=== PATIENT | female | born 1975 | race African-American/Black ===

== ENCOUNTER 2022-05-28 15:09 | Inpatient (IN) | payer MEDICAID ==
[~2022-05-28] VITALS: Ht 165.1 cm; Wt 80.7 kg
[2022-05-28] MEDS ORDERED: SODIUM CHLORIDE 0.9% 1,000 ML IV ONE (16:00)
[2022-05-28 16:17] LABS: BG BASE EXCESS -24.4 mmol/L (-2.0-2.0); BG CARBOXYHEMOGLOBIN 0.3 % (0.5-1.5); BG DEOXYHEMOGLOBIN 3.4 % (0.0-5.0); BG HCO3 ACT 4.9 mmol/L (22.0-26.0); BG METHEMOGLOBIN 0.4 % (0.0-1.5); BG OXYGEN SATURATION 96.6 % (92.0-98.5); BG OXYHEMOGLOBIN 95.9 % (94.0-97.0); BG PCO2 19.5 mmHg (35.0-45.0); BG PO2 109.7 mmHg (75.0-100.0); BG SAMPLE SITE RIGHT RADIAL; BG TOTAL HEMOGLOBIN 11.6 g/dL (12.0-18.0); BG VENT MODE ROOM AIR
[2022-05-28 16:45] LABS: HEMATOCRIT. 37.6 % (36.0-48.0); HEMOGLOBIN. 10.4 g/dL (12.0-16.0); MEAN CORPUSCULAR HEMOGLOBIN 31.5 pg (28.0-32.0); MEAN CORPUSCULAR VOLUME 113.7 fL (81.0-99.0); MEAN PLATELET VOLUME 8.5 fl (7.4-10.4); PLATELET 608 x1000/uL (130-400); RED CELL DISTRIBUTION WIDTH 16.7 % (11.6-14.6)
[2022-05-28 16:51] LABS: CHLORIDE 91 mEq/L (98-107)
[2022-05-28 17:03] LABS: HCG SCREEN NEGATIVE
[2022-05-28] MEDS ORDERED: INSULIN REGULAR 100U/100ML PMX 100 ML IV SCH (17:30)
[2022-05-28] MEDS ORDERED: INSULIN REGULAR (DRIP) 100 UNITS in SODIUM CHLORIDE 0.9% 99 ML IV SCH (17:30)
[2022-05-28] MEDS ORDERED: KCL 10MEQ/50ML PREMIX 50 ML IV ONE ×2 (17:30)
[2022-05-28 17:36] LABS: PHOSPHORUS 8.4 mg/dL (2.5-4.9)
[2022-05-28] MEDS ORDERED: CEFTRIAXONE 1 G PREMIX 50 ML IV ONE (18:00)
[2022-05-28] MEDS ORDERED: VANCOMYCIN 1G PREMIX 200 ML IV SCH (18:00)
[2022-05-28 18:22] LABS: PLATELET ESTIMATE INCREASED
[2022-05-28 18:25] LABS: BETA HYDROXYBUTYRATE 14.9 mMol/L (0.0-0.3)
[2022-05-28] MEDS ORDERED: CEFTRIAXONE 1 G PREMIX 50 ML IV NR (18:30)
[2022-05-28 20:04] LABS: CLARITY URINE CLOUDY (CLEAR); COLOR URINE YELLOW (YELLOW); KETONES URINE 4+ (NEGATIVE); LEUKOCYTE ESTERASE URINE 2+ (NEGATIVE); NITRITE URINE NEGATIVE (NEGATIVE); OCCULT BLOOD URINE 3+ (NEGATIVE); PH URINE 5.5 (4.5-8.0); PROTEIN URINE 1+ (NEGATIVE); SPECIFIC GRAVITY URINE 1.021 (1.005-1.030)
[2022-05-28] MEDS ORDERED: MIDAZOLAM HCL 50 MG in DEXTROSE 5% WATER 40 ML IV ONE (21:00)
[2022-05-28] MEDS ORDERED: MIDAZOLAM HCL 100 MG in SODIUM CHLORIDE 0.9% 80 ML IV NR (21:15)
[2022-05-28 21:41] LABS: CHLORIDE 96 mEq/L (98-107)
[2022-05-29] VITALS (86 sets, daily range): BP systolic 43–120; BP diastolic 19–78
[2022-05-29 00:15] LABS: BG BASE EXCESS -20.5 mmol/L (-2.0-2.0); BG CARBOXYHEMOGLOBIN 0.3 % (0.5-1.5); BG DEOXYHEMOGLOBIN 2.4 % (0.0-5.0); BG FRACTION INSPIRED OXYGEN 100; BG METHEMOGLOBIN 0.4 % (0.0-1.5); BG OXYGEN SATURATION 97.6 % (92.0-98.5); BG OXYHEMOGLOBIN 96.9 % (94.0-97.0); BG PCO2 27.4 mmHg (35.0-45.0); BG PH 7.082 (7.350-7.450); BG PO2 110.5 mmHg (75.0-100.0); BG SAMPLE SITE LEFT RADIAL; BG TOTAL HEMOGLOBIN 10.9 g/dL (12.0-18.0); BG VENT MODE VENT - AC
[2022-05-29] MEDS ORDERED: SODIUM CHLORIDE 0.9% 1,000 ML IV SCH (00:45)
[2022-05-29] MEDS ORDERED: LORAZEPAM 2MG/ML CPJ IV PRN (01:00)
[2022-05-29] MEDS ORDERED: PIPERACILLIN/TAZOBACTAM 3.375 G in DEXTROSE 5% WATER 50 ML IV SCH (01:00)
[2022-05-29] MEDS ORDERED: CLONIDINE 0.1MG TABLET PO PRN (01:00)
[2022-05-29] MEDS ORDERED: MORPHINE SULFATE 2 MG/ML CPJ (NOT FOR IM USE) IV PRN (01:00)
[2022-05-29] MEDS ORDERED: ACETAMINOPHEN 325MG TABLET PO PRN (01:00)
[2022-05-29] MEDS ORDERED: DOCUSATE SODIUM 100MG CAPSULE PO PRN (01:00)
[2022-05-29] MEDS ORDERED: MAGNESIUM/ALUMINUM HYDROXIDE/SIMETHICONE 30ML UDC PO PRN (01:00)
[2022-05-29] MEDS ORDERED: NOREPINEPHRINE 8MG/250ML PMX 250 ML IV PRN (01:00)
[2022-05-29] MEDS ORDERED: DIPHENHYDRAMINE 50MG/ML VIAL IV PRN (01:00)
[2022-05-29] MEDS ORDERED: LACTATED RINGERS 1,000 ML IV ONE (01:00)
[2022-05-29] MEDS ORDERED: GUAIFENESIN 200MG/10ML SUGAR FREE UDC PO PRN (01:00)
[2022-05-29] MEDS ORDERED: ACETAMINOPHEN 650MG SUPP PR PRN ×2 (01:00)
[2022-05-29] MEDS ORDERED: NOREPINEPHRINE 8 MG in DEXTROSE 5% WATER 250 ML IV PRN (01:15)
[2022-05-29] MEDS: PHENYLEPHRINE 100 MG in DEXT 5% WATER 240 ML IV PRN ×2 (01:25→19:33)
[2022-05-29] MEDS: INSULIN REGULAR 100U/100ML PMX 100 ML IV PRN ×4 (01:26→08:57)
[2022-05-29] MEDS ORDERED: LACTATED RINGERS 2,000 ML IV ONE (01:30)
[2022-05-29] MEDS ORDERED: POTASSIUM CHLORIDE INJ 40 MEQ in DEXT 5% WATER 250 ML IV ONE (03:15)
[2022-05-29] MEDS: KCL 20MEQ/100ML X 2 FOR TOTAL KCL 40MEQ/200ML IV SCH ×2 (03:35→05:33)
[2022-05-29] MEDS ORDERED: FENTANYL 2500MCG/250ML PMX 250 ML IV ONE (05:30)
[2022-05-29] MEDS ORDERED: FENTANYL CITRATE 2,500 MCG in SODIUM CHLORIDE 0.9% 200 ML IV PRN (05:30)
[2022-05-29] MEDS: PIPERACILLIN/TAZOBACTAM 3.375G in DEXT 5% WATER 50ML IV SCH ×3 (05:34→21:10)
[2022-05-29] MEDS ORDERED: SODIUM CHLORIDE 0.45% 1,000 ML IV SCH (08:00)
[2022-05-29 08:03] LABS: HEMATOCRIT. 31.8 % (36.0-48.0); HEMOGLOBIN. 9.9 g/dL (12.0-16.0); MEAN CORPUSCULAR HEMOGLOBIN 31.7 pg (28.0-32.0); MEAN CORPUSCULAR VOLUME 101.9 fL (81.0-99.0); MEAN PLATELET VOLUME 8.4 fl (7.4-10.4); PLATELET 397 x1000/uL (130-400); RED BLOOD CELL COUNT 3.12 mill/uL (4.2-5.4); RED CELL DISTRIBUTION WIDTH 15.2 % (11.6-14.6)
[2022-05-29 08:49] LABS: BG BASE EXCESS -8.3 mmol/L (-2.0-2.0); BG CARBOXYHEMOGLOBIN 0.3 % (0.5-1.5); BG DEOXYHEMOGLOBIN 0.2 % (0.0-5.0); BG FRACTION INSPIRED OXYGEN 100; BG HCO3 ACT 14.6 mmol/L (22.0-26.0); BG METHEMOGLOBIN 0.1 % (0.0-1.5); BG OXYGEN SATURATION 99.8 % (92.0-98.5); BG OXYHEMOGLOBIN 99.4 % (94.0-97.0); BG PH 7.421 (7.350-7.450); BG PO2 444.4 mmHg (75.0-100.0); BG SAMPLE SITE RIGHT RADIAL; BG TOTAL HEMOGLOBIN 10.6 g/dL (12.0-18.0); BG VENT MODE VENT - AC
[2022-05-29] MEDS: MIDAZOLAM HCL 100 MG in SODIUM CHLORIDE 0.9% 80 ML IV PRN ×2 (08:57→19:33)
[2022-05-29] MEDS ORDERED: ENOXAPARIN 40MG/0.4ML SYR SUBCUT SCH (09:01)
[2022-05-29 09:18] LABS: CREATINE KINASE 177 IU/L (26-192); HDL CHOLESTEROL 11 mg/dL (40-59); LDL CHOLESTEROL 153 mg/dL (5-100); PHOSPHORUS 1.7 mg/dL (2.5-4.9)
[2022-05-29 09:35] LABS: CREATINE KINASE 133 IU/L (26-192)
[2022-05-29] MEDS ORDERED: DEXT 5%/0.45% NACL 1000ML 1,000 ML IV SCH (11:45)
[2022-05-29] MEDS ORDERED: KCL 20MEQ/100ML PREMIX 100 ML IV PRN (11:45)
[2022-05-29] MEDS: BLOOD SUGAR DIAGNOSTIC STRIP TEST SCH ×6 (12:35→21:06)
[2022-05-29 13:07] LABS: PROTHROMBIN TIME 11.1 sec (9.6-11.0)
[2022-05-29 14:30] LABS: PHOSPHORUS 0.5 mg/dL (2.5-4.9)
[2022-05-29 14:39] LABS: NUCLEATED RED BLOOD CELLS 1 /100 WBC
[2022-05-29 14:40] LABS: PLATELET ESTIMATE NORMAL
[2022-05-29] MEDS: ACETAMINOPHEN 325MG TABLET PO PRN ×2 (15:43→21:16)
[2022-05-29] MEDS ORDERED: POTASSIUM PHOS,M-BASIC-D-BASIC 20 MMOL in DEXT 5% WATER 243.3333 ML IV NR (16:00)
[2022-05-29] MEDS ORDERED: INSULIN GLARGINE 100 UNITS/ML SUBCUT NR (16:45)
[2022-05-29] MEDS ORDERED: DEXTROSE 50% WATER 50ML SYRINGE IV PRN (16:45)
[2022-05-29] MEDS: SODIUM CHLORIDE 0.45% 1,000 ML IV SCH (17:03)
[2022-05-29] MEDS ORDERED: VANCOMYCIN 750MG PREMIX 150 ML IV SCH (18:00)
[2022-05-29] MEDS: INSULIN LISPRO 100 UNITS/ML SUBCUT SCH ×2 (18:13→21:13)
[2022-05-29 18:27] LABS: PHOSPHORUS 0.4 mg/dL (2.5-4.9)
[2022-05-29] MEDS: INSULIN GLARGINE 100 UNITS/ML SUBCUT SCH (21:13)
[2022-05-29 21:15] LABS: PHOSPHORUS 2.5 mg/dL (2.5-4.9)
[2022-05-30] VITALS (98 sets, daily range): BP systolic 90–146; BP diastolic 57–94
[2022-05-30] MEDS: SODIUM CHLORIDE 0.45% 1,000 ML IV SCH (05:00)
[2022-05-30] MEDS: PIPERACILLIN/TAZOBACTAM 3.375G in DEXT 5% WATER 50ML IV SCH ×3 (05:01→22:06)
[2022-05-30 05:50] LABS: HEMATOCRIT. 25.9 % (36.0-48.0); HEMOGLOBIN. 8.7 g/dL (12.0-16.0); MEAN CORPUSCULAR HEMOGLOBIN 31.9 pg (28.0-32.0); MEAN CORPUSCULAR VOLUME 95.1 fL (81.0-99.0); MEAN PLATELET VOLUME 8.4 fl (7.4-10.4); PLATELET 358 x1000/uL (130-400); RED BLOOD CELL COUNT 2.73 mill/uL (4.2-5.4)
[2022-05-30] MEDS ORDERED: POTASSIUM CHLORIDE INJ 40 MEQ in DEXT 5% WATER 250 ML IV ONE (07:00)
[2022-05-30] MEDS: BLOOD SUGAR DIAGNOSTIC STRIP TEST SCH ×4 (07:21→21:46)
[2022-05-30] MEDS: KCL 20MEQ/100ML X 2 FOR TOTAL KCL 40MEQ/200ML IV SCH ×2 (07:22→10:10)
[2022-05-30] MEDS ORDERED: KCL 20MEQ/100ML PREMIX 100 ML IV SCH (07:30)
[2022-05-30 08:22] LABS: BG BASE EXCESS -4.7 mmol/L (-2.0-2.0); BG CARBOXYHEMOGLOBIN 0.6 % (0.5-1.5); BG DEOXYHEMOGLOBIN 0.8 % (0.0-5.0); BG FRACTION INSPIRED OXYGEN 40; BG HCO3 ACT 19.2 mmol/L (22.0-26.0); BG METHEMOGLOBIN 0.4 % (0.0-1.5); BG OXYGEN SATURATION 99.2 % (92.0-98.5); BG OXYHEMOGLOBIN 98.2 % (94.0-97.0); BG PO2 166.8 mmHg (75.0-100.0); BG SAMPLE SITE LEFT RADIAL; BG TOTAL HEMOGLOBIN 9.1 g/dL (12.0-18.0); BG TOTAL RESPIRATORY RATE 24 b/min; BG VENT MODE VENT - AC
[2022-05-30] MEDS: PANTOPRAZOLE SODIUM 40 MG/VIAL IV SCH (09:05)
[2022-05-30] MEDS: ENOXAPARIN 30MG/0.3ML SYR SUBCUT SCH (09:06)
[2022-05-30] MEDS: INSULIN GLARGINE 100 UNITS/ML SUBCUT SCH ×2 (09:07→21:55)
[2022-05-30] MEDS: INSULIN LISPRO 100 UNITS/ML SUBCUT SCH ×4 (09:07→21:55)
[2022-05-30] MEDS: PHENYLEPHRINE 100 MG in DEXT 5% WATER 240 ML IV PRN (09:09)
[2022-05-30 16:31] LABS: *AMPHETAMINES SCREEN URINE NEGATIVE (NEGATIVE); *BARBITURATES SCREEN URINE NEGATIVE (NEGATIVE); *COCAINE SCREEN URINE NEGATIVE (NEGATIVE); METHADONE URINE SCREEN NEGATIVE (NEGATIVE); OPIATES URINE SCREEN NEGATIVE (NEGATIVE); PHENCYCLIDINE URINE SCREEN NEGATIVE (NEGATIVE)
[2022-05-30 16:37] LABS: PLATELET ESTIMATE NORMAL
[2022-05-30 16:49] LABS: *BENZODIAZEPINES SCREEN URINE PRESUMTIVE POSITIVE (NEGATIVE); CANNABINOID URINE SCREEN PRESUMTIVE POSITIVE (NEGATIVE)
[2022-05-31] VITALS (89 sets, daily range): BP systolic 103–163; BP diastolic 65–99
[2022-05-31] MEDS ORDERED: INSULIN LISPRO 100 UNITS/ML SUBCUT SCH
[2022-05-31] MEDS ORDERED: VANCOMYCIN 1G PREMIX 200 ML IV NR
[2022-05-31] MEDS: BLOOD SUGAR DIAGNOSTIC STRIP TEST SCH ×6 (00:29→20:17)
[2022-05-31] MEDS: INSULIN LISPRO (MEDIUM DOSE) 100 UNITS/ML SUBCUT SCH ×6 (00:33→20:22)
[2022-05-31] MEDS: SODIUM CHLORIDE 0.45% 1,000 ML IV SCH ×3 (02:42→21:55)
[2022-05-31] MEDS: PIPERACILLIN/TAZOBACTAM 3.375G in DEXT 5% WATER 50ML IV SCH ×3 (05:52→21:30)
[2022-05-31 07:09] LABS: HEMATOCRIT. 22.3 % (36.0-48.0); HEMOGLOBIN. 7.6 g/dL (12.0-16.0); MEAN CORPUSCULAR HEMOGLOBIN 32.2 pg (28.0-32.0); MEAN PLATELET VOLUME 8.3 fl (7.4-10.4); PLATELET 296 x1000/uL (130-400); RED BLOOD CELL COUNT 2.37 mill/uL (4.2-5.4)
[2022-05-31 07:28] LABS: CHLORIDE 113 mEq/L (98-107)
[2022-05-31 07:49] LABS: PHOSPHORUS 1.6 mg/dL (2.5-4.9)
[2022-05-31] MEDS ORDERED: POTASSIUM CHLORIDE 20MEQ/PACKET PO NR (08:00)
[2022-05-31 08:31] LABS: BG BASE EXCESS -3.5 mmol/L (-2.0-2.0); BG CARBOXYHEMOGLOBIN 0.3 % (0.5-1.5); BG DEOXYHEMOGLOBIN 1.2 % (0.0-5.0); BG FRACTION INSPIRED OXYGEN 40; BG HCO3 ACT 20.2 mmol/L (22.0-26.0); BG METHEMOGLOBIN 0.3 % (0.0-1.5); BG OXYGEN SATURATION 98.8 % (92.0-98.5); BG OXYHEMOGLOBIN 98.2 % (94.0-97.0); BG PH 7.432 (7.350-7.450); BG PO2 127.5 mmHg (75.0-100.0); BG SAMPLE SITE RIGHT RADIAL; BG TOTAL HEMOGLOBIN 7.9 g/dL (12.0-18.0); BG TOTAL RESPIRATORY RATE 20 b/min; BG VENT MODE VENT - AC
[2022-05-31] MEDS: PANTOPRAZOLE SODIUM 40 MG/VIAL IV SCH (08:33)
[2022-05-31] MEDS: ENOXAPARIN 30MG/0.3ML SYR SUBCUT SCH (08:35)
[2022-05-31] MEDS: PHENYLEPHRINE 100 MG in DEXT 5% WATER 240 ML IV PRN ×2 (09:00→17:46)
[2022-05-31] MEDS: IPRATROPIUM/ALBUTEROL 0.5-3(2.5)MG/3ML NEB NEB PRN ×2 (09:49→16:19)
[2022-05-31 09:59] LABS: PLATELET ESTIMATE NORMAL
[2022-05-31] MEDS: INSULIN GLARGINE 100 UNITS/ML SUBCUT SCH ×2 (10:57→21:37)
[2022-05-31 14:04] LABS: VITAMIN B12 SERUM >2000 pg/mL pg/mL (211-911)
[2022-05-31 15:37] LABS: BG BASE EXCESS -2.2 mmol/L (-2.0-2.0); BG CARBOXYHEMOGLOBIN 0.3 % (0.5-1.5); BG DEOXYHEMOGLOBIN 1.2 % (0.0-5.0); BG FRACTION INSPIRED OXYGEN 40; BG HCO3 ACT 21.8 mmol/L (22.0-26.0); BG METHEMOGLOBIN 0.2 % (0.0-1.5); BG OXYGEN SATURATION 98.8 % (92.0-98.5); BG OXYHEMOGLOBIN 98.3 % (94.0-97.0); BG PCO2 34.1 mmHg (35.0-45.0); BG PH 7.424 (7.350-7.450); BG PO2 143.8 mmHg (75.0-100.0); BG SAMPLE SITE LEFT RADIAL; BG TOTAL HEMOGLOBIN 8.5 g/dL (12.0-18.0); BG VENT MODE VENT - CPAP
[2022-05-31 18:20] LABS: INR 1.1; PROTHROMBIN TIME 11.4 sec (9.6-11.0)
[2022-05-31 19:42] LABS: TOTAL IRON BINDING CAPACITY 132 ug/dL (250-450)
[2022-05-31] MEDS: VANCOMYCIN 1G PREMIX 200 ML IV SCH (22:11)
[2022-06-01] VITALS (82 sets, daily range): BP systolic 84–159; BP diastolic 64–104
[2022-06-01] MEDS: BLOOD SUGAR DIAGNOSTIC STRIP TEST SCH ×6 (00:11→20:30)
[2022-06-01] MEDS: INSULIN LISPRO (MEDIUM DOSE) 100 UNITS/ML SUBCUT SCH ×6 (00:32→20:00)
[2022-06-01 07:26] LABS: HEMOGLOBIN. 7.7 g/dL (12.0-16.0); MEAN CORPUSCULAR VOLUME 95.4 fL (81.0-99.0); MEAN PLATELET VOLUME 7.9 fl (7.4-10.4); PLATELET 278 x1000/uL (130-400); RED BLOOD CELL COUNT 2.41 mill/uL (4.2-5.4); RED CELL DISTRIBUTION WIDTH 15.1 % (11.6-14.6)
[2022-06-01] MEDS: PIPERACILLIN/TAZOBACTAM 3.375G in DEXT 5% WATER 50ML IV SCH ×3 (07:29→21:31)
[2022-06-01 07:31] LABS: CHLORIDE 112 mEq/L (98-107)
[2022-06-01 07:52] LABS: PHOSPHORUS 1.6 mg/dL (2.5-4.9)
[2022-06-01] MEDS: IPRATROPIUM/ALBUTEROL 0.5-3(2.5)MG/3ML NEB NEB PRN (08:02)
[2022-06-01 09:09] LABS: BG BASE EXCESS -0.7 mmol/L (-2.0-2.0); BG CARBOXYHEMOGLOBIN 0.3 % (0.5-1.5); BG DEOXYHEMOGLOBIN 5.1 % (0.0-5.0); BG FRACTION INSPIRED OXYGEN 26; BG HCO3 ACT 23.1 mmol/L (22.0-26.0); BG METHEMOGLOBIN 0.8 % (0.0-1.5); BG OXYGEN SATURATION 94.8 % (92.0-98.5); BG OXYHEMOGLOBIN 93.8 % (94.0-97.0); BG PCO2 34.7 mmHg (35.0-45.0); BG PH 7.442 (7.350-7.450); BG PO2 71.6 mmHg (75.0-100.0); BG SAMPLE SITE RIGHT RADIAL; BG TOTAL HEMOGLOBIN 8.1 g/dL (12.0-18.0); BG VENT MODE NASAL CANNULA
[2022-06-01] MEDS ORDERED: KCL 20MEQ/100ML PREMIX 100 ML IV NR (09:15)
[2022-06-01] MEDS: PANTOPRAZOLE SODIUM 40 MG/VIAL IV SCH (09:40)
[2022-06-01] MEDS: INSULIN GLARGINE 100 UNITS/ML SUBCUT SCH ×2 (10:01→21:30)
[2022-06-01] MEDS: SODIUM CHLORIDE 0.45% 1,000 ML IV SCH ×2 (11:25→23:00)
[2022-06-01] MEDS ORDERED: POTASSIUM PHOS,M-BASIC-D-BASIC 20 MMOL in DEXT 5% WATER 243.3333 ML IV ONE (12:00)
[2022-06-01 16:25] LABS: PLATELET ESTIMATE NORMAL
[2022-06-01] MEDS ORDERED: NALOXONE HCL 0.4MG/ML VIAL IV PRN (16:30)
[2022-06-01 17:11] LABS: HEPATITIS B SURFACE ANTIGEN NEGATIVE
[2022-06-01] MEDS: MORPHINE SULFATE 2 MG/ML CPJ (NOT FOR IM USE) IV PRN ×2 (17:29→21:33)
[2022-06-01] MEDS: VANCOMYCIN 1G PREMIX 200 ML IV SCH (23:10)
[2022-06-02] VITALS (45 sets, daily range): BP systolic 116–144; BP diastolic 75–103
[2022-06-02] MEDS: BLOOD SUGAR DIAGNOSTIC STRIP TEST SCH ×5 (00:08→17:59)
[2022-06-02] MEDS: INSULIN LISPRO (MEDIUM DOSE) 100 UNITS/ML SUBCUT SCH ×3 (04:20→08:00)
[2022-06-02 05:45] LABS: HEMATOCRIT. 21.7 % (36.0-48.0); HEMOGLOBIN. 7.3 g/dL (12.0-16.0); MEAN CORPUSCULAR VOLUME 94.8 fL (81.0-99.0); MEAN PLATELET VOLUME 7.7 fl (7.4-10.4); PLATELET 286 x1000/uL (130-400); RED BLOOD CELL COUNT 2.29 mill/uL (4.2-5.4)
[2022-06-02 05:53] LABS: CHLORIDE 112 mEq/L (98-107)
[2022-06-02 06:14] LABS: PHOSPHORUS 2.6 mg/dL (2.5-4.9)
[2022-06-02] MEDS: PIPERACILLIN/TAZOBACTAM 3.375G in DEXT 5% WATER 50ML IV SCH ×3 (06:33→22:28)
[2022-06-02] MEDS: MORPHINE SULFATE 2 MG/ML CPJ (NOT FOR IM USE) IV PRN (08:00)
[2022-06-02] MEDS ORDERED: KCL 20MEQ/100ML PREMIX 100 ML IV SCH (09:00)
[2022-06-02] MEDS ORDERED: POTASSIUM CHLORIDE 20MEQ/PACKET NG SCH (09:00)
[2022-06-02] MEDS: PANTOPRAZOLE SODIUM 40 MG/VIAL IV SCH (09:17)
[2022-06-02] MEDS: INSULIN GLARGINE 100 UNITS/ML SUBCUT SCH ×2 (09:17→22:11)
[2022-06-02 09:57] LABS: PLATELET ESTIMATE NORMAL
[2022-06-02] MEDS ORDERED: INSULIN LISPRO 100 UNITS/ML SUBCUT SCH (12:00)
[2022-06-02] MEDS: INSULIN LISPRO (LOW DOSE) 100 UNITS/ML SUBCUT SCH ×2 (12:00→17:59)
[2022-06-02] MEDS: SODIUM CHLORIDE 0.45% 1,000 ML IV SCH (13:43)
[2022-06-02] MEDS: VANCOMYCIN 1G PREMIX 200 ML IV SCH (18:00)
[2022-06-03] VITALS (25 sets, daily range): BP systolic 111–139; BP diastolic 58–90
[2022-06-03] MEDS: BLOOD SUGAR DIAGNOSTIC STRIP TEST SCH ×5 (00:06→22:44)
[2022-06-03] MEDS: DEXTROSE 50% WATER 50ML SYRINGE IV PRN ×2 (00:11→06:20)
[2022-06-03] MEDS: SODIUM CHLORIDE 0.45% 1,000 ML IV SCH ×2 (03:09→16:46)
[2022-06-03 05:32] LABS: HEMATOCRIT. 21.8 % (36.0-48.0); HEMOGLOBIN. 7.2 g/dL (12.0-16.0); MEAN CORPUSCULAR HEMOGLOBIN 31.8 pg (28.0-32.0); MEAN CORPUSCULAR VOLUME 95.7 fL (81.0-99.0); MEAN PLATELET VOLUME 7.8 fl (7.4-10.4); PLATELET 338 x1000/uL (130-400); RED BLOOD CELL COUNT 2.27 mill/uL (4.2-5.4)
[2022-06-03 05:35] LABS: CHLORIDE 113 mEq/L (98-107)
[2022-06-03 05:54] LABS: PHOSPHORUS 2.2 mg/dL (2.5-4.9)
[2022-06-03] MEDS: INSULIN LISPRO (LOW DOSE) 100 UNITS/ML SUBCUT SCH ×5 (06:00→22:44)
[2022-06-03] MEDS: PIPERACILLIN/TAZOBACTAM 3.375G in DEXT 5% WATER 50ML IV SCH ×3 (07:31→21:17)
[2022-06-03] MEDS ORDERED: POTASSIUM CHLORIDE 20MEQ/PACKET PO SCH (08:00)
[2022-06-03] MEDS: IPRATROPIUM/ALBUTEROL 0.5-3(2.5)MG/3ML NEB NEB PRN (08:51)
[2022-06-03] MEDS: PANTOPRAZOLE SODIUM 40 MG/VIAL IV SCH (09:26)
[2022-06-03] MEDS: INSULIN GLARGINE 100 UNITS/ML SUBCUT SCH (09:26)
[2022-06-03] MEDS: VANCOMYCIN 1G PREMIX 200 ML IV SCH (12:00)
[2022-06-03 13:52] LABS: NUCLEATED RED BLOOD CELLS 1 /100 WBC
[2022-06-03 13:54] LABS: PLATELET ESTIMATE NORMAL
[2022-06-03] MEDS ORDERED: INSULIN GLARGINE 100 UNITS/ML SUBCUT SCH (22:00)
[2022-06-04] VITALS (22 sets, daily range): BP systolic 120–149; BP diastolic 74–100
[2022-06-04] MEDS: INSULIN LISPRO (LOW DOSE) 100 UNITS/ML SUBCUT SCH ×3 (05:16→18:28)
[2022-06-04] MEDS: BLOOD SUGAR DIAGNOSTIC STRIP TEST SCH ×4 (05:17→21:50)
[2022-06-04 05:45] LABS: BASOPHILS % 0.6 % (0.0-2.0); EOSINOPHILS % 1.7 % (0.0-5.0); HEMOGLOBIN. 8.1 g/dL (12.0-16.0); LYMPHOCYTES % 14.5 % (20.0-50.0); MEAN CORPUSCULAR HEMOGLOBIN 32.1 pg (28.0-32.0); MEAN CORPUSCULAR VOLUME 95.1 fL (81.0-99.0); MEAN PLATELET VOLUME 7.5 fl (7.4-10.4); MONOCYTES % 10.5 % (2.0-8.0); NEUTROPHILS % 72.7 % (40.0-76.0); PLATELET 407 x1000/uL (130-400); RED BLOOD CELL COUNT 2.52 mill/uL (4.2-5.4); RED CELL DISTRIBUTION WIDTH 14.9 % (11.6-14.6)
[2022-06-04 06:06] LABS: CHLORIDE 111 mEq/L (98-107)
[2022-06-04] MEDS ORDERED: POTASSIUM CHLORIDE 20MEQ/PACKET PO NR (07:45)
[2022-06-04] MEDS: PIPERACILLIN/TAZOBACTAM 3.375G in DEXT 5% WATER 50ML IV SCH ×3 (08:53→22:21)
[2022-06-04] MEDS: PANTOPRAZOLE SODIUM 40 MG/VIAL IV SCH (08:54)
[2022-06-04] MEDS ORDERED: HYDROCODONE/ACETAMINOPHEN 5/325MG TABLET PO PRN (11:15)
[2022-06-04] MEDS: VANCOMYCIN 1G PREMIX 200 ML IV SCH (13:26)
[2022-06-04] MEDS: INSULIN GLARGINE 100 UNITS/ML SUBCUT SCH (22:22)
[2022-06-05] VITALS: BP 122/78
[2022-06-05 04:00] VITALS: BP 113/69
[2022-06-05 04:15] LABS: HEMATOCRIT. 23.6 % (36.0-48.0); HEMOGLOBIN. 7.8 g/dL (12.0-16.0); MEAN CORPUSCULAR VOLUME 96.6 fL (81.0-99.0); MEAN PLATELET VOLUME 7.3 fl (7.4-10.4); PLATELET 489 x1000/uL (130-400); RED BLOOD CELL COUNT 2.44 mill/uL (4.2-5.4); RED CELL DISTRIBUTION WIDTH 15.6 % (11.6-14.6)
[2022-06-05] MEDS: VANCOMYCIN 1G PREMIX 200 ML IV SCH ×2 (04:55→21:50)
[2022-06-05] MEDS: PIPERACILLIN/TAZOBACTAM 3.375G in DEXT 5% WATER 50ML IV SCH ×3 (06:37→21:52)
[2022-06-05] MEDS: INSULIN LISPRO (LOW DOSE) 100 UNITS/ML SUBCUT SCH ×3 (06:38→17:49)
[2022-06-05] MEDS: BLOOD SUGAR DIAGNOSTIC STRIP TEST SCH ×4 (06:39→21:49)
[2022-06-05] MEDS: INSULIN LISPRO 100 UNITS/ML SUBCUT SCH ×3 (06:39→17:49)
[2022-06-05] MEDS ORDERED: INSULIN LISPRO 100 UNITS/ML SUBCUT SCH (07:50)
[2022-06-05 08:00] VITALS: BP 124/78
[2022-06-05 12:00] VITALS: BP 124/76
[2022-06-05] MEDS ORDERED: INSU100I28 SQ (12:34)
[2022-06-05] MEDS ORDERED: DOXY-326 MT (12:34)
[2022-06-05] MEDS ORDERED: AMOX1TAB16 MT (12:34)
[2022-06-05] MEDS: OMEPRAZOLE 20MG CAPSULE EXTENDED RELEASE PO SCH (14:32)
[2022-06-05 16:00] VITALS: BP 127/83
[2022-06-05 18:38] LABS: PLATELET ESTIMATE INCREASED
[2022-06-05 20:00] VITALS: BP 150/86
[2022-06-05] MEDS: INSULIN GLARGINE 100 UNITS/ML SUBCUT SCH (21:51)
[2022-06-06] VITALS: BP 142/89
[2022-06-06 04:00] VITALS: BP 110/73
[2022-06-06] MEDS: OMEPRAZOLE 20MG CAPSULE EXTENDED RELEASE PO SCH (05:51)
[2022-06-06] MEDS: PIPERACILLIN/TAZOBACTAM 3.375G in DEXT 5% WATER 50ML IV SCH ×2 (05:51→14:16)
[2022-06-06] MEDS: INSULIN LISPRO (LOW DOSE) 100 UNITS/ML SUBCUT SCH ×2 (05:51→11:40)
[2022-06-06] MEDS: INSULIN LISPRO 100 UNITS/ML SUBCUT SCH ×2 (05:52→11:40)
[2022-06-06] MEDS: BLOOD SUGAR DIAGNOSTIC STRIP TEST SCH ×2 (05:52→12:39)
[2022-06-06 08:00] VITALS: BP 117/82
[2022-06-06 12:00] VITALS: BP 124/85
[2022-06-06 13:56] VITALS: BP 124/85
== END 2022-06-06 14:45 | disposition home or self-care (01) | DRG 720 ==
LOC: ER 15:09 → EDBEDREQ 16:03 → MICUSO 18:02 → EDBEDREQTM 18:09 → EDBEDREQ 18:09 → CVICU 23:45 → 7EST 06-04 21:14
PROVIDERS: ADMIT Family Medicine Adult Medicine; ATTEND Family Medicine Adult Medicine
PROC: 5A1945Z Respiratory Ventilation, 24-96 Consecutive Hours (ICD-10-PCS; principal; 2022-05-28)
PROC: 0BH17EZ Insertion of Endotracheal Airway into Trachea, Via Natural or Artificial Opening (ICD-10-PCS; 2022-05-28)
PROC: 02HV33Z Insertion of Infusion Device into Superior Vena Cava, Percutaneous Approach (ICD-10-PCS; 2022-05-28)
PROC: B548ZZA Ultrasonography of Superior Vena Cava, Guidance (ICD-10-PCS; 2022-05-28)
PROC: 5A09357 Assistance with Respiratory Ventilation, Less than 24 Consecutive Hours, Continuous Positive Airway Pressure (ICD-10-PCS; 2022-05-31)
DX: A41.9 Sepsis, unspecified organism (principal); J96.00 Acute respiratory failure, unspecified whether with hypoxia or hypercapnia; N17.0 Acute kidney failure with tubular necrosis; E11.10 Type 2 diabetes mellitus with ketoacidosis without coma; R65.21 Severe sepsis with septic shock; G93.41 Metabolic encephalopathy; E43 Unspecified severe protein-calorie malnutrition; A59.9 Trichomoniasis, unspecified; E83.39 Other disorders of phosphorus metabolism; L02.215 Cutaneous abscess of perineum; E11.22 Type 2 diabetes mellitus with diabetic chronic kidney disease; E66.9 Obesity, unspecified; Z20.822 Contact with and (suspected) exposure to COVID-19; E78.5 Hyperlipidemia, unspecified; E87.6 Hypokalemia; I12.9 Hypertensive chronic kidney disease with stage 1 through stage 4 chronic kidney disease, or unspecified chronic kidney disease; K61.0 Anal abscess; L02.31 Cutaneous abscess of buttock; L03.317 Cellulitis of buttock; L03.315 Cellulitis of perineum; M46.1 Sacroiliitis, not elsewhere classified; N18.9 Chronic kidney disease, unspecified; N39.0 Urinary tract infection, site not specified; R79.1 Abnormal coagulation profile; E87.1 Hypo-osmolality and hyponatremia; D53.9 Nutritional anemia, unspecified; E88.09 Other disorders of plasma-protein metabolism, not elsewhere classified; Z68.29 Body mass index [BMI] 29.0-29.9, adult; Z79.82 Long term (current) use of aspirin; Z87.891 Personal history of nicotine dependence; Z91.14 Patient's other noncompliance with medication regimen; Z91.199 Patient's noncompliance with other medical treatment and regimen due to unspecified reason
CPT/HCPCS: 31500; 36415; 36600; 71045; 72193; 76705; 76770; 80048; 80053; 80061; 80076; 80202; 80305; 81003; 82010; 82140; 82375; 82533; 82550; 82607; 82728; 82746; 82805; 82962; 82977; 83036; 83540; 83550; 83735; 84100; 84134; 84145; 84443; 84484; 84703; 85025; 85044; 85651; 86705; 86709; 86803; 87070; 87340; 87426; 92610; 93005; 94640; 97110; 97162; 99291; A6261; C1893; C9113; J0696; J1650; J1815; J2060; J2250; J2270; J2370; J2543; J3370; J3480; J3490; J7030; J7050; J7060; J7120; A4315